=== PATIENT | male | born 1980 | race Two or more races ===

== ENCOUNTER 2025-09-28 16:41 | Emergency (ER) | payer MEDICAID ==
[~2025-09-28] VITALS: Ht 175.3 cm; Wt 97.7 kg
[~2025-09-28 16:41] MED LIST: ACET650S24 PR; ATOR40TA28 PO; EMPA10TA3 PO; FAMO20 PO; INSU100V SQ; MAGN-169 PO; METF-1211 PO; PRAS10TA21 PO
[2025-09-28 16:45] VITALS: TEMP 97.5
[2025-09-28 17:06] LABS: GLUCOMETER DEV NAME(LOC) ER.7; GLUCOSE,POINT OF CARE 334 MG/DL (70-110)
[2025-09-28] MEDS: ACETAMINOPHEN 500 MG TABLET PO ONE (18:47)
[2025-09-28] MEDS: IBUPROFEN 600 MG TABLET PO ONE (18:48)
[2025-09-28] MEDS ORDERED: METH-659 PO (19:07)
[2025-09-28] MEDS ORDERED: ACET-66 PO (19:07)
[2025-09-28] MEDS ORDERED: IBUP-1554 PO (19:07)
[2025-09-28 19:24] VITALS: BP 135/86; PULSE 80; RESP 18; O2SAT 99
== END 2025-09-28 19:00 | disposition home or self-care (01) ==
LOC: EMS 16:41
DX: S46.912A Strain of unspecified muscle, fascia and tendon at shoulder and upper arm level, left arm, initial encounter (principal); E11.65 Type 2 diabetes mellitus with hyperglycemia; E78.00 Pure hypercholesterolemia, unspecified; I10 Essential (primary) hypertension; Z98.890 Other specified postprocedural states; Z79.02 Long term (current) use of antithrombotics/antiplatelets; Z79.899 Other long term (current) drug therapy; Z95.5 Presence of coronary angioplasty implant and graft; Z91.013 Allergy to seafood; X50.0XXA Overexertion from strenuous movement or load, initial encounter; Y93.89 Activity, other specified; Y92.89 Other specified places as the place of occurrence of the external cause; Y99.9 Unspecified external cause status
CPT/HCPCS: 29240; 82962; 99284